=== PATIENT | male | born 1985 | race African-American/Black ===

== ENCOUNTER 2018-03-05 22:50 | Emergency (ER) | payer OTHER ==
[~2018-03-05] VITALS: Ht 165.1 cm; Wt 90.9 kg
[2018-03-05 22:55] VITALS: BP 138/61; TEMP 98.1
[2018-03-05] MEDS ORDERED: PREDNISONE20 MG PO (23:54)
[2018-03-06 00:21] VITALS: PULSE 52
== END 2018-03-06 00:23 | disposition home or self-care (01) ==
LOC: COL.ER 22:50
DX: L50.9 Urticaria, unspecified (principal); Z98.890 Other specified postprocedural states; J45.909 Unspecified asthma, uncomplicated
CPT/HCPCS: J7512